=== PATIENT | male | born 1990 | race Caucasian/White ===

== ENCOUNTER 2025-02-24 18:32 | Inpatient (IN) | payer OTHER ==
[2025-02-24 18:50] VITALS: BMI 23.1
[2025-02-24] MEDS ORDERED: MAG HYDROX/AL HYDROX/SIMETH 30 ML UNIT-DOSE CUP PO PRN (19:17)
[2025-02-24] MEDS ORDERED: BISMUTH SUBSALICYLATE 524 MG/30 ML PO PRN (19:17)
[2025-02-24] MEDS ORDERED: DICYCLOMINE HCL 10 MG CAPSULE PO PRN (19:17)
[2025-02-24] MEDS ORDERED: MAGNESIUM HYDROX 2400MG/30ML ORAL SUSPENSION 30 ML CUP PO PRN (19:17)
[2025-02-24] MEDS ORDERED: IBUPROFEN 400 MG TABLET (FP) PO PRN (19:17)
[2025-02-24] MEDS ORDERED: guaiFENesin 600 MG TABLET.ER (FP) PO PRN (19:17)
[2025-02-24] MEDS ORDERED: LOPERAMIDE HCL 2 MG CAPSULE PO PRN (19:17)
[2025-02-24] MEDS ORDERED: POLYETHYLENE GLYCOL (HEALTHYLAX) 3350 17 GM PACKET PO PRN (19:17)
[2025-02-24] MEDS ORDERED: BENZOCAINE/MENTHOL (CHLORASEPTIC ) LOZENGE MM PRN (19:17)
[2025-02-24] MEDS ORDERED: NALOXONE (NARCAN) HCL 4 MG/0.1 ML SPRAY NS PRN (19:17)
[2025-02-24] MEDS ORDERED: NICOTINE POLACRILEX 2 MG LOZENGE BC PRN (19:17)
[2025-02-24] MEDS ORDERED: ACETAMINOPHEN 325 MG TABLET (FP) PO PRN (19:17)
[2025-02-24] MEDS ORDERED: BENZONATATE 200 MG CAPSULE PO PRN (19:17)
[2025-02-24] MEDS: MELATONIN 5 MG TABLETS PO SCH (22:51)
[2025-02-24] MEDS: THIAMINE 100 MG TABLET PO SCH (22:51)
[2025-02-24] MEDS: methaDONE HCL 10 MG TABLET (FOR DETOX USE ONLY) PO ONE (22:51)
[2025-02-25] MEDS: ONDANSETRON *ODT* 4 MG TABLET SL PRN (09:19)
[2025-02-25] MEDS: methaDONE HCL 10 MG TABLET (FOR DETOX USE ONLY) PO ONE (09:20)
[2025-02-25] MEDS: PRENATAL VITAMINS W/ FOLIC ACID TABLET (FP) PO SCH (09:21)
[2025-02-25 11:30] LABS: HEMATOCRIT 38.4 % (40.1-51.0); HEMOGLOBIN 12.7 g/dL (13.7-17.5); MCHC 33.1 g/dl (32.3-36.5); MEAN CELL VOLUME 88.9 fl (79.0-92.2); PLATELET COUNT 321 x10^3/uL (163-337); RDW 12.6 % (12.0-15.6)
[2025-02-25 11:33] LABS: POTASSIUM 3.8 mmol/L (3.5-5.1)
[2025-02-25 11:37] LABS: CALCIUM 9.1 mg/dL (8.5-10.1)
[2025-02-25 11:38] LABS: ALBUMIN 3.4 g/dl (3.4-5.0); BLOOD UREA NITROGEN 14.5 mg/dL (7-18)
[2025-02-25 11:41] LABS: CREATININE 0.6 mg/dL (0.55-1.3)
[2025-02-25 11:43] LABS: BILIRUBIN,TOTAL 0.3 mg/dL (0.2-1); TOT PROT 6.5 g/dl (6.4-8.2)
[2025-02-25] MEDS: diazePAM 5 MG TABLET PO PRN (16:03)
[2025-02-25] MEDS: methaDONE HCL 10 MG TABLET PO ONE (19:48)
[2025-02-26 16:35] LABS: PH,URINE 7.5 (5.0-8.0); URINE APPEARANCE CLEAR; URINE BILIRUBIN NEGATIVE (NEGATIVE); URINE COLOR YELLOW; URINE GLUCOSE (UA) NEGATIVE (NEGATIVE); URINE KETONE NEGATIVE (NEGATIVE); URINE LEUK ESTERASE NEGATIVE (NEGATIVE); URINE NITRITE NEGATIVE (NEGATIVE); URINE PROTEIN NEGATIVE (NEGATIVE); URINE UROBILINOGEN 0.2 mg/dL (0.2-1.0)
[2025-02-26] MEDS: cloNIDine HCL 0.1 MG TABLET PO PRN (17:05)
[2025-02-27] MEDS: METHOCARBAMOL 500 MG TABLET PO PRN (03:20)
[2025-02-27] MEDS: methaDONE HCL 10 MG TABLET (FOR DETOX USE ONLY) PO ONE (09:14)
[2025-02-27 10:40] LABS: ABSOLUTE IMMATURE GRANULOCYTES 0.02 x10^3/uL (0.0-0.031); BASOPHILS # 0.02 x10^3/uL (0.01-0.08); HEMATOCRIT 39.5 % (40.1-51.0); HEMOGLOBIN 13.3 g/dL (13.7-17.5); MCHC 33.7 g/dl (32.3-36.5); MEAN CELL VOLUME 88.2 fl (79.0-92.2); MEAN PLT VOLUME 9.9 fl (9.4-12.4); MONOCYTE # 0.51 x10^3/uL (0.30-0.82); MONOCYTE % 7.6 % (5.3-12.2); PLATELET COUNT 376 x10^3/uL (163-337); RDW 12.4 % (12.0-15.6)
[2025-02-27] MEDS: cloNIDine HCL 0.1 MG TABLET PO ONE (21:55)
[2025-02-28] MEDS: methaDONE HCL 10 MG TABLET PO SCH (05:54)
[2025-02-28] MEDS: IBUPROFEN 600 MG TABLET (FP) PO PRN (09:53)
[2025-02-28 10:25] LABS: HEMATOCRIT 44.9 % (40.1-51.0); HEMOGLOBIN 14.7 g/dL (13.7-17.5); MCHC 32.7 g/dl (32.3-36.5); MEAN PLT VOLUME 9.7 fl (9.4-12.4); PLATELET COUNT 436 x10^3/uL (163-337); RDW 12.7 % (12.0-15.6)
[2025-03-01] MEDS: NICOTINE POLACRILEX 2 MG GUM BUC PRN ×2 (09:43→18:18)
[2025-03-01] MEDS ORDERED: methaDONE HCL 10 MG TABLET (FOR DETOX USE ONLY) PO ONE (10:00)
[2025-03-01] MEDS: NICOTINE 21 MG/24 HOURS TOPICAL PATCH TD SCH (10:39)
[2025-03-01] MEDS: hydrOXYzine PAMOATE 25 MG CAPSULE (FP) PO ONE (13:25)
[2025-03-02 06:47] VITALS: BP 137/75; PULSE 81; RESP 17; TEMP 97.7
== END 2025-03-02 08:10 | disposition other institution (70) | DRG 773 ==
LOC: YASAS 18:32 → Y6N 19:59
PROVIDERS: ADMIT Allergy & Immunology; ATTEND Family Medicine Addiction Medicine
PROC: HZ2ZZZZ Detoxification Services for Substance Abuse Treatment (ICD-10-PCS; principal; 2025-02-24)
DX: F11.23 Opioid dependence with withdrawal (principal); F14.20 Cocaine dependence, uncomplicated; F13.20 Sedative, hypnotic or anxiolytic dependence, uncomplicated; F12.20 Cannabis dependence, uncomplicated; F17.210 Nicotine dependence, cigarettes, uncomplicated; D72.829 Elevated white blood cell count, unspecified; R11.2 Nausea with vomiting, unspecified
CPT/HCPCS: 36415; 71046-TC-FY; 80053; 80305; 80307; 81003; 85025; 85027; 86780; 93005; 93010; Q0162